=== PATIENT | female | born 1945 | race Caucasian/White ===

== ENCOUNTER 2020-06-18 14:30 | Observation (INO) ==
[2020-06-18] MEDS ORDERED: FUROSEMIDE 40 MG/4 ML VIAL IV STA (14:56)
[2020-06-18 15:29] LABS: Basophils # 0.1 10*3/uL (0.0-0.2); Basophils % 1.1 % (0.0-0.8); Eosinophils # 0.2 10*3/uL (0.0-0.87); Eosinophils % 3.9 % (0.00-10.9); Hematocrit 30.7 VOL% (35.7-47.0); Hemoglobin 9.8 GM/DL (12.0-16.0); Immature Granulocytes % 0.2 %; Immature Granulocytes Absolute 0.01 #; Lymphocytes # 1.6 10*3/uL (1.4-4.0); Lymphocytes % 26.4 % (21.3-54.2); Mean Corpuscular HGB Conc 31.9 GM/DL (32-36); Mean Corpuscular Volume 92.2 FL (87-102); Mean Platelet Volume 11.7 FL (9.6-12.0); Monocytes % 9.7 % (1.7-12.7); Neutrophils % 58.7 % (38.7-73.9); Platelet Count 163 T/CUMM (130-400); Red Blood Count 3.33 MC/CUMM (3.8-5.5); Red Cell Distribution Width 12.5 % (9.3-17.3); White Blood Count 6.1 T/CUMM (4-12)
[2020-06-18 16:01] LABS: Bilirubin,Urine Negative (Negative); Blood, Urine Large mg/dL (Negative); Glucose,Urine (UA) Negative (Negative); Hyaline Casts,Urine 29 /LPF (0-3); Ketones,Urine Negative (Negative); Mucus,Urine Occasional /LPF (Occasional); Nitrite,Urine Negative (Negative); Protein,Urine >=500 MG/DL; RBC,Urine 238 /HPF (0-4); Squamous Epithelial Cell,Urine Occasional /HPF (0-10); Urine Appearance Slightly Hazy (Clear); Urine Color Yellow (Yellow); Urine Specific Gravity 1.012 (1.001-1.035); Urine Urobilinogen < 2.0 EU/DL (0.2-1.0)
[2020-06-18] MEDS ORDERED: ONDANSETRON 4 MG/2 ML VIAL IV STA (16:09)
[2020-06-18 16:17] LABS: Bilirubin,Total 0.6 MG/DL (0.2-1.0); Calcium 8.5 MG/DL (8.5-10.1); Prealbumin 11.4 MG/DL (20-40); Total Protein 5.8 G/DL (5.0-7.5)
[2020-06-18] MEDS ORDERED: GLUCAGON 1 MG VIAL IM PRN (21:11)
[2020-06-18] MEDS ORDERED: DEXTROSE 50% 25 GM/50 ML VIAL IV PRN (21:11)
[2020-06-18] MEDS: cefTRIAXone 500 MG in SYRINGE 1 EACH IV SCH (21:27)
[2020-06-18] MEDS: PROPRANOLOL 40 MG TABLET PO SCH (21:27)
[2020-06-18] MEDS: MONTELUKAST 10 MG TABLET PO SCH (21:28)
[2020-06-18] MEDS: ALBUMIN 25% 25 GM in PREMIX 1 EACH IV SCH (21:28)
[2020-06-19] MEDS: ALBUMIN 25% 25 GM in PREMIX 1 EACH IV SCH ×3 (06:03→22:02)
[2020-06-19 06:51] LABS: Calcium 8.5 MG/DL (8.5-10.1); Potassium 3.8 MMOL/L (3.5-5.1)
[2020-06-19] MEDS: INSULIN REGULAR 100 UNIT/ML SUBCUT SCH ×2 (07:05→16:10)
[2020-06-19] MEDS: GLIMEPIRIDE 2 MG TABLET PO SCH (09:02)
[2020-06-19] MEDS: PROPRANOLOL 40 MG TABLET PO SCH ×2 (09:06→22:01)
[2020-06-19] MEDS: SERTRALINE 50 MG TABLET PO SCH (09:06)
[2020-06-19] MEDS: SIMETHICONE CHEW 80 MG TABLET PO SCH ×3 (09:07→17:21)
[2020-06-19] MEDS: FUROSEMIDE 20 MG/2 ML VIAL IV SCH (09:12)
[2020-06-19] MEDS ORDERED: SPIRONOLACTONE 100 MG TABLET PO SCH (15:00)
[2020-06-19] MEDS: PANTOPRAZOLE 40 MG TABLET PO SCH (17:20)
[2020-06-19] MEDS: ALBUTEROL/IPRATROPIUM 3 ML NEB RESP TX SCH (19:31)
[2020-06-19] MEDS: MONTELUKAST 10 MG TABLET PO SCH (22:01)
[2020-06-19] MEDS: cefTRIAXone 500 MG in SYRINGE 1 EACH IV SCH (22:01)
[2020-06-20] MEDS: ALBUTEROL/IPRATROPIUM 3 ML NEB RESP TX SCH ×4 (01:53→20:04)
[2020-06-20] MEDS: ALBUMIN 25% 25 GM in PREMIX 1 EACH IV SCH ×3 (05:37→20:49)
[2020-06-20 07:10] LABS: Basophils % 0.8 % (0.0-0.8); Eosinophils # 0.2 10*3/uL (0.0-0.87); Eosinophils % 3.8 % (0.00-10.9); Hematocrit 26.1 VOL% (35.7-47.0); Hemoglobin 8.3 GM/DL (12.0-16.0); Immature Granulocytes % 0.3 %; Immature Granulocytes Absolute 0.01 #; Lymphocytes % 25.7 % (21.3-54.2); Mean Corpuscular HGB Conc 31.8 GM/DL (32-36); Mean Corpuscular Volume 93.5 FL (87-102); Mean Platelet Volume 12.5 FL (9.6-12.0); Monocytes % 9.7 % (1.7-12.7); Neutrophils % 59.7 % (38.7-73.9); Platelet Count 84 T/CUMM (130-400); Red Blood Count 2.79 MC/CUMM (3.8-5.5); Red Cell Distribution Width 12.3 % (9.3-17.3); White Blood Count 3.9 T/CUMM (4-12)
[2020-06-20] MEDS: BUDESONIDE 0.25 MG/2 ML NEB RESP TX SCH ×3 (07:32→20:04)
[2020-06-20 07:45] LABS: Calcium 8.6 MG/DL (8.5-10.1); Osmolality,Calculated 289.7 MOS/KG (273-304); Potassium 3.6 MMOL/L (3.5-5.1)
[2020-06-20 07:48] LABS: Albumin 2.9 G/DL (3.4-5.0); Bilirubin,Direct 0.18 MG/DL (0.0-0.20); Bilirubin,Indirect 0.6 MG/DL (0.0-1.0); Bilirubin,Total 0.8 MG/DL (0.2-1.0); Total Protein 5.9 G/DL (5.0-7.5)
[2020-06-20 08:12] LABS: Hypochromasia 1+
[2020-06-20 08:13] LABS: Microcytosis 1+; Platelet Estimate Decreased
[2020-06-20] MEDS: SIMETHICONE CHEW 80 MG TABLET PO SCH ×3 (09:15→16:56)
[2020-06-20] MEDS: PROPRANOLOL 40 MG TABLET PO SCH ×2 (09:15→20:50)
[2020-06-20] MEDS: GLIMEPIRIDE 2 MG TABLET PO SCH (09:15)
[2020-06-20] MEDS: SERTRALINE 50 MG TABLET PO SCH (09:15)
[2020-06-20] MEDS: INSULIN REGULAR 100 UNIT/ML SUBCUT SCH ×2 (09:54→16:56)
[2020-06-20] MEDS: methylPREDNISolone SOD SUC 40 MG/1 ML VIAL IV SCH ×2 (09:55→20:49)
[2020-06-20] MEDS: FUROSEMIDE 20 MG/2 ML VIAL IV SCH (09:55)
[2020-06-20] MEDS: PANTOPRAZOLE 40 MG TABLET PO SCH (09:55)
[2020-06-20] MEDS ORDERED: SPIRONOLACTONE 25 MG TABLET PO ONE (16:40)
[2020-06-20] MEDS: cefTRIAXone 500 MG in SYRINGE 1 EACH IV SCH (20:49)
[2020-06-20] MEDS: MONTELUKAST 10 MG TABLET PO SCH (20:50)
[2020-06-21] MEDS: ALBUMIN 25% 25 GM in PREMIX 1 EACH IV SCH ×4 (00:16→15:05)
[2020-06-21] MEDS: ALBUTEROL/IPRATROPIUM 3 ML NEB RESP TX SCH ×4 (00:28→19:43)
[2020-06-21 04:51] LABS: Calcium 8.7 MG/DL (8.5-10.1); Osmolality,Calculated 285.4 MOS/KG (273-304); Potassium 3.9 MMOL/L (3.5-5.1)
[2020-06-21] MEDS: BUDESONIDE 0.25 MG/2 ML NEB RESP TX SCH ×2 (07:25→19:43)
[2020-06-21] MEDS: INSULIN REGULAR 100 UNIT/ML SUBCUT SCH ×2 (07:49→15:57)
[2020-06-21] MEDS: GLIMEPIRIDE 2 MG TABLET PO SCH (09:43)
[2020-06-21] MEDS: SIMETHICONE CHEW 80 MG TABLET PO SCH ×3 (09:43→17:25)
[2020-06-21] MEDS: PANTOPRAZOLE 40 MG TABLET PO SCH (09:44)
[2020-06-21] MEDS: SERTRALINE 50 MG TABLET PO SCH (09:44)
[2020-06-21] MEDS: SPIRONOLACTONE 25 MG TABLET PO SCH (09:44)
[2020-06-21] MEDS: PROPRANOLOL 40 MG TABLET PO SCH ×2 (09:44→21:15)
[2020-06-21] MEDS: methylPREDNISolone SOD SUC 40 MG/1 ML VIAL IV SCH ×2 (09:47→21:15)
[2020-06-21] MEDS: FUROSEMIDE 20 MG/2 ML VIAL IV SCH (09:48)
[2020-06-21] MEDS ORDERED: POLYETHYLENE GLYCOL POWDER 17 GM PACK PO PRN (19:41)
[2020-06-21] MEDS: cefTRIAXone 500 MG in SYRINGE 1 EACH IV SCH (21:15)
[2020-06-21] MEDS: MONTELUKAST 10 MG TABLET PO SCH (21:15)
[2020-06-21] MEDS: ONDANSETRON ODT 4 MG TABLET PO PRN (21:19)
[2020-06-22] MEDS: ALBUTEROL/IPRATROPIUM 3 ML NEB RESP TX SCH ×4 (00:05→19:32)
[2020-06-22] MEDS: ALBUMIN 25% 25 GM in PREMIX 1 EACH IV SCH ×2 (00:10→06:04)
[2020-06-22 05:28] LABS: Basophils % 0.2 % (0.0-0.8); Hematocrit 25.2 VOL% (35.7-47.0); Immature Granulocytes % 0.6 %; Immature Granulocytes Absolute 0.03 #; Lymphocytes # 0.5 10*3/uL (1.4-4.0); Lymphocytes % 9.8 % (21.3-54.2); Mean Corpuscular HGB Conc 31.7 GM/DL (32-36); Mean Corpuscular Volume 92.3 FL (87-102); Mean Platelet Volume 12.8 FL (9.6-12.0); Monocytes % 6.7 % (1.7-12.7); Neutrophils % 82.7 % (38.7-73.9); Platelet Count 83 T/CUMM (130-400); Red Blood Count 2.73 MC/CUMM (3.8-5.5); Red Cell Distribution Width 12.4 % (9.3-17.3); White Blood Count 4.8 T/CUMM (4-12)
[2020-06-22 05:46] LABS: Albumin 3.6 G/DL (3.4-5.0); Calcium 8.6 MG/DL (8.5-10.1); Osmolality,Calculated 289.3 MOS/KG (273-304); Potassium 3.9 MMOL/L (3.5-5.1); Total Protein 5.8 G/DL (5.0-7.5)
[2020-06-22] MEDS: BUDESONIDE 0.25 MG/2 ML NEB RESP TX SCH ×2 (07:00→19:32)
[2020-06-22 07:23] LABS: Macrocytosis Slight; Platelet Estimate Decreased
[2020-06-22 07:24] LABS: Anisocytosis Slight
[2020-06-22] MEDS: INSULIN REGULAR 100 UNIT/ML SUBCUT SCH ×2 (07:29→17:12)
[2020-06-22] MEDS: PROPRANOLOL 40 MG TABLET PO SCH ×2 (08:25→21:23)
[2020-06-22] MEDS: PANTOPRAZOLE 40 MG TABLET PO SCH (08:26)
[2020-06-22] MEDS: GLIMEPIRIDE 2 MG TABLET PO SCH (08:26)
[2020-06-22] MEDS: SPIRONOLACTONE 25 MG TABLET PO SCH (08:26)
[2020-06-22] MEDS: SIMETHICONE CHEW 80 MG TABLET PO SCH ×3 (08:26→17:12)
[2020-06-22] MEDS: methylPREDNISolone SOD SUC 40 MG/1 ML VIAL IV SCH ×2 (08:29→21:23)
[2020-06-22] MEDS: FUROSEMIDE 20 MG/2 ML VIAL IV SCH (08:31)
[2020-06-22] MEDS: SERTRALINE 50 MG TABLET PO SCH (11:55)
[2020-06-22] MEDS ORDERED: FUROSEMIDE 20 MG/2 ML VIAL IV ONE ×2 (12:04→18:25)
[2020-06-22] MEDS ORDERED: SODIUM CHLORIDE 0.9% 1,000 ML IV PRN (12:10)
[2020-06-22] MEDS ORDERED: ACETAMINOPHEN 325 MG TABLET PO ONE (13:00)
[2020-06-22] MEDS: MONTELUKAST 10 MG TABLET PO SCH (21:23)
[2020-06-22] MEDS: cefTRIAXone 500 MG in SYRINGE 1 EACH IV SCH (21:24)
[2020-06-23] MEDS: ALBUTEROL/IPRATROPIUM 3 ML NEB RESP TX SCH ×4 (01:05→19:44)
[2020-06-23] MEDS: SPIRONOLACTONE 25 MG TABLET PO SCH (09:26)
[2020-06-23] MEDS: SERTRALINE 50 MG TABLET PO SCH (09:26)
[2020-06-23] MEDS: PROPRANOLOL 40 MG TABLET PO SCH ×2 (09:26→21:39)
[2020-06-23] MEDS: PANTOPRAZOLE 40 MG TABLET PO SCH (09:26)
[2020-06-23] MEDS: CHOLECALCIFEROL 1,000 UNIT TABLET PO SCH (09:26)
[2020-06-23] MEDS: SIMETHICONE CHEW 80 MG TABLET PO SCH ×3 (09:27→17:00)
[2020-06-23] MEDS: methylPREDNISolone SOD SUC 40 MG/1 ML VIAL IV SCH ×2 (09:27→21:35)
[2020-06-23] MEDS: GLIMEPIRIDE 2 MG TABLET PO SCH (09:27)
[2020-06-23] MEDS: FUROSEMIDE 20 MG/2 ML VIAL IV SCH (09:35)
[2020-06-23] MEDS: BUDESONIDE 0.25 MG/2 ML NEB RESP TX SCH ×2 (09:58→19:44)
[2020-06-23 11:27] LABS: Basophils % 0.2 % (0.0-0.8); Hematocrit 29.8 VOL% (35.7-47.0); Hemoglobin 9.4 GM/DL (12.0-16.0); Immature Granulocytes % 0.9 %; Immature Granulocytes Absolute 0.05 #; Lymphocytes # 0.4 10*3/uL (1.4-4.0); Lymphocytes % 6.2 % (21.3-54.2); Mean Corpuscular HGB Conc 31.5 GM/DL (32-36); Mean Corpuscular Volume 93.7 FL (87-102); Mean Platelet Volume 12.9 FL (9.6-12.0); Monocytes % 5.5 % (1.7-12.7); Neutrophils % 87.2 % (38.7-73.9); Platelet Count 99 T/CUMM (130-400); Red Blood Count 3.18 MC/CUMM (3.8-5.5); Red Cell Distribution Width 12.7 % (9.3-17.3); White Blood Count 5.7 T/CUMM (4-12)
[2020-06-23 11:43] LABS: Platelet Estimate Decreased
[2020-06-23 11:44] LABS: Hypochromasia 1+; Microcytosis 1+
[2020-06-23] MEDS: INSULIN REGULAR 100 UNIT/ML SUBCUT SCH ×2 (11:54→18:02)
[2020-06-23] MEDS ORDERED: FUROSEMIDE 40 MG/4 ML VIAL IV SCH (15:02)
[2020-06-23] MEDS ORDERED: SPIRONOLACTONE 50 MG TABLET PO ONE (15:04)
[2020-06-23] MEDS: MYLANTA/LIDO VISC/NYST 180 ML BOTTLE SWISH/SPIT SCH ×2 (17:00→22:47)
[2020-06-23 19:05] LABS: Albumin 3.4 G/DL (3.4-5.0); Bilirubin,Total 0.8 MG/DL (0.2-1.0); Calcium 8.8 MG/DL (8.5-10.1); Osmolality,Calculated 288.7 MOS/KG (273-304); Potassium 3.7 MMOL/L (3.5-5.1); Total Protein 6.5 G/DL (5.0-7.5)
[2020-06-23] MEDS: FUROSEMIDE 40 MG/4 ML VIAL IV SCH (21:35)
[2020-06-23] MEDS: cefTRIAXone 500 MG in SYRINGE 1 EACH IV SCH (21:36)
[2020-06-23] MEDS: MONTELUKAST 10 MG TABLET PO SCH (21:38)
[2020-06-24] MEDS: ONDANSETRON ODT 4 MG TABLET PO PRN (02:43)
[2020-06-24 06:26] LABS: Hematocrit 28.3 VOL% (35.7-47.0); Immature Granulocytes % 0.6 %; Immature Granulocytes Absolute 0.02 #; Lymphocytes # 0.4 10*3/uL (1.4-4.0); Lymphocytes % 9.7 % (21.3-54.2); Mean Corpuscular HGB Conc 31.8 GM/DL (32-36); Mean Corpuscular Volume 93.1 FL (87-102); Mean Platelet Volume 13.2 FL (9.6-12.0); Monocytes % 5.8 % (1.7-12.7); Neutrophils % 83.9 % (38.7-73.9); Platelet Count 90 T/CUMM (130-400); Red Blood Count 3.04 MC/CUMM (3.8-5.5); Red Cell Distribution Width 12.6 % (9.3-17.3); White Blood Count 3.6 T/CUMM (4-12)
[2020-06-24 06:46] LABS: Hypochromasia 1+; Microcytosis 1+; Platelet Estimate Decreased
[2020-06-24 06:48] LABS: Albumin 3.2 G/DL (3.4-5.0); Calcium 8.5 MG/DL (8.5-10.1); Osmolality,Calculated 296.1 MOS/KG (273-304); Potassium 3.9 MMOL/L (3.5-5.1)
[2020-06-24] MEDS: MYLANTA/LIDO VISC/NYST 180 ML BOTTLE SWISH/SPIT SCH ×3 (07:30→17:30)
[2020-06-24] MEDS: ALBUTEROL/IPRATROPIUM 3 ML NEB RESP TX SCH ×2 (07:35→14:50)
[2020-06-24] MEDS: BUDESONIDE 0.25 MG/2 ML NEB RESP TX SCH (07:35)
[2020-06-24] MEDS: PANTOPRAZOLE 40 MG TABLET PO SCH (08:59)
[2020-06-24] MEDS ORDERED: POLYETHYLENE GLYCOL POWDER 17 GM PACK PO SCH (09:00)
[2020-06-24] MEDS: SIMETHICONE CHEW 80 MG TABLET PO SCH ×3 (09:00→17:30)
[2020-06-24] MEDS: GLIMEPIRIDE 2 MG TABLET PO SCH (09:00)
[2020-06-24] MEDS ORDERED: SPIRONOLACTONE 100 MG TABLET PO SCH (09:00)
[2020-06-24] MEDS: CHOLECALCIFEROL 1,000 UNIT TABLET PO SCH (09:01)
[2020-06-24] MEDS: PROPRANOLOL 40 MG TABLET PO SCH (09:01)
[2020-06-24] MEDS: SERTRALINE 50 MG TABLET PO SCH (09:02)
[2020-06-24] MEDS: INSULIN REGULAR 100 UNIT/ML SUBCUT SCH (09:02)
[2020-06-24] MEDS: FUROSEMIDE 40 MG/4 ML VIAL IV SCH (09:03)
[2020-06-24] MEDS: methylPREDNISolone SOD SUC 40 MG/1 ML VIAL IV SCH (09:07)
[2020-06-24 12:16] VITALS: BP 170/83
[2020-06-24] MEDS ORDERED: IPRATROPIUM 500 MCG/2.5 ML NEB RESP TX SCH (19:00)
[2020-06-24] MEDS ORDERED: LEVALBUTEROL 1.25 MG/3 ML NEB RESP TX SCH (19:00)
== END 2020-06-24 17:40 ==
LOC: N.EDINP 14:30 → N.ED 14:30 → N.4E 19:22
PROVIDERS: ADMIT Internal Medicine; ATTEND Internal Medicine

== ENCOUNTER 2020-08-14 14:19 | Inpatient (IN) ==
[2020-08-14] MEDS ORDERED: ACETAMINOPHEN 325 MG TABLET PO PRN (15:17)
[2020-08-14] MEDS ORDERED: ONDANSETRON 4 MG/2 ML VIAL IV PRN (15:17)
[2020-08-14] MEDS ORDERED: MAGNESIUM HYDROXIDE SUSP 30 ML UDCUP PO PRN (15:20)
[2020-08-14] MEDS ORDERED: LACTULOSE 20 GM/30 ML UDCUP PO PRN (15:20)
[2020-08-14] MEDS ORDERED: TUBERCULIN SKIN TEST 0.1 ML SYRINGE INTRADERM ONE (17:30)
[2020-08-14 17:35] LABS: Basophils # 0.1 10*3/uL (0.0-0.2); Basophils % 0.8 % (0.0-0.8); Eosinophils # 0.7 10*3/uL (0.0-0.87); Eosinophils % 11.6 % (0.00-10.9); Hematocrit 27.5 VOL% (35.7-47.0); Hemoglobin 8.3 GM/DL (12.0-16.0); Immature Granulocytes % 0.3 %; Immature Granulocytes Absolute 0.02 #; Lymphocytes # 0.7 10*3/uL (1.4-4.0); Lymphocytes % 11.8 % (21.3-54.2); Mean Corpuscular HGB Conc 30.2 GM/DL (32-36); Mean Corpuscular Volume 87.6 FL (87-102); Mean Platelet Volume 11.9 FL (9.6-12.0); Monocytes % 10.6 % (1.7-12.7); Neutrophils % 64.9 % (38.7-73.9); Platelet Count 171 T/CUMM (130-400); Red Blood Count 3.14 MC/CUMM (3.8-5.5); Red Cell Distribution Width 15.3 % (9.3-17.3)
[2020-08-14 17:54] LABS: Albumin 2.6 G/DL (3.4-5.0); Bilirubin,Total 0.7 MG/DL (0.2-1.0); Calcium 8.9 MG/DL (8.5-10.1); Osmolality,Calculated 280.5 MOS/KG (273-304); Total Protein 6.6 G/DL (6.4-8.2)
[2020-08-14] MEDS: FUROSEMIDE 80 MG TABLET PO SCH (19:04)
[2020-08-14] MEDS: SIMETHICONE CHEW 80 MG TABLET PO SCH (19:04)
[2020-08-14] MEDS: ALBUTEROL/IPRATROPIUM 3 ML NEB RESP TX SCH (19:05)
[2020-08-14 19:28] LABS: Band Neutrophils 2 % (0-10); Eosinophils 12 % (0-10); Lymphocytes 12 % (20-55); Platelet Estimate Normal; Segmented Neutrophils 61 % (50-85); Total Cells Counted 100
[2020-08-14] MEDS: DOCUSATE SODIUM 100 MG CAPSULE PO SCH (22:10)
[2020-08-14] MEDS: traMADol 50 MG TABLET PO PRN (22:11)
[2020-08-14] MEDS: NYSTATIN 500,000 UNIT/5 ML UDCUP SWISH/SWAL SCH (22:12)
[2020-08-14] MEDS: methylPREDNISolone SOD SUC 40 MG/1 ML VIAL IV SCH (22:12)
[2020-08-14] MEDS: hydrOXYzine HCL 25 MG TABLET PO SCH (22:12)
[2020-08-14] MEDS: CLINDAMYCIN INJ 600 MG/50 ML PREMIX IV SCH (22:13)
[2020-08-14] MEDS: INSULIN REGULAR 100 UNIT/ML SUBCUT SCH (23:46)
[2020-08-15] MEDS: ALBUMIN 25% 25 GM/100 ML VIAL IV SCH ×4 (00:39→21:54)
[2020-08-15] MEDS: ALBUTEROL/IPRATROPIUM 3 ML NEB RESP TX SCH ×4 (01:00→19:58)
[2020-08-15] MEDS: NYSTATIN OINT 15 GM TUBE TOP SCH ×3 (05:11→21:52)
[2020-08-15] MEDS: CLINDAMYCIN INJ 600 MG/50 ML PREMIX IV SCH ×3 (05:39→21:00)
[2020-08-15] MEDS: methylPREDNISolone SOD SUC 40 MG/1 ML VIAL IV SCH ×3 (06:37→21:52)
[2020-08-15 06:44] LABS: Albumin 2.9 G/DL (3.4-5.0); Bilirubin,Total 1.1 MG/DL (0.2-1.0); Osmolality,Calculated 280.7 MOS/KG (273-304); Potassium 4.5 MMOL/L (3.5-5.1)
[2020-08-15 06:46] LABS: Basophils % 0.5 % (0.0-0.8); Eosinophils # 0.1 10*3/uL (0.0-0.87); Eosinophils % 1.9 % (0.00-10.9); Hematocrit 28.1 VOL% (35.7-47.0); Hemoglobin 8.5 GM/DL (12.0-16.0); Immature Granulocytes % 0.5 %; Immature Granulocytes Absolute 0.02 #; Lymphocytes # 0.3 10*3/uL (1.4-4.0); Lymphocytes % 7.5 % (21.3-54.2); Mean Corpuscular HGB Conc 30.2 GM/DL (32-36); Mean Corpuscular Volume 88.6 FL (87-102); Mean Platelet Volume 12.2 FL (9.6-12.0); Monocytes % 2.6 % (1.7-12.7); Platelet Count 153 T/CUMM (130-400); Red Blood Count 3.17 MC/CUMM (3.8-5.5); Red Cell Distribution Width 15.1 % (9.3-17.3); White Blood Count 4.2 T/CUMM (4-12)
[2020-08-15] MEDS ORDERED: FUROSEMIDE 40 MG/4 ML VIAL IV ONE (07:00)
[2020-08-15] MEDS: PANTOPRAZOLE 40 MG TABLET PO SCH ×2 (07:20→08:59)
[2020-08-15] MEDS: SIMETHICONE CHEW 80 MG TABLET PO SCH ×3 (08:12→18:02)
[2020-08-15] MEDS: FUROSEMIDE 80 MG TABLET PO SCH ×2 (08:12→16:09)
[2020-08-15] MEDS: NYSTATIN 500,000 UNIT/5 ML UDCUP SWISH/SWAL SCH ×4 (08:12→20:17)
[2020-08-15] MEDS: SERTRALINE 50 MG TABLET PO SCH (08:12)
[2020-08-15] MEDS: DOCUSATE SODIUM 100 MG CAPSULE PO SCH ×2 (08:13→20:17)
[2020-08-15] MEDS: SPIRONOLACTONE 50 MG TABLET PO SCH (08:13)
[2020-08-15] MEDS: hydrOXYzine HCL 25 MG TABLET PO SCH ×3 (08:13→20:17)
[2020-08-15] MEDS: INSULIN REGULAR 100 UNIT/ML SUBCUT SCH ×4 (09:14→21:47)
[2020-08-15] MEDS: PROPRANOLOL 40 MG TABLET PO SCH ×2 (11:47→20:17)
[2020-08-15 12:03] LABS: Bacteria,Urine Occasional /HPF (Few); Bilirubin,Urine Negative (Negative); Blood, Urine Large mg/dL (Negative); Glucose,Urine (UA) Negative (Negative); Hyaline Casts,Urine 49 /LPF (0-3); Ketones,Urine Negative (Negative); Mucus,Urine Occasional /LPF (Occasional); Nitrite,Urine Negative (Negative); Protein,Urine 100 MG/DL; RBC,Urine 114 /HPF (0-4); Squamous Epithelial Cell,Urine Occasional /HPF (0-10); Urine Appearance Slightly Hazy (Clear); Urine Color Yellow (Yellow); Urine Specific Gravity 1.012 (1.001-1.035); Urine Urobilinogen < 2.0 EU/DL (0.2-1.0)
[2020-08-15] MEDS: traMADol 50 MG TABLET PO PRN (20:22)
[2020-08-16] MEDS: ALBUTEROL/IPRATROPIUM 3 ML NEB RESP TX SCH ×4 (00:03→20:12)
[2020-08-16] MEDS: CLINDAMYCIN INJ 600 MG/50 ML PREMIX IV SCH ×3 (05:22→23:26)
[2020-08-16] MEDS: methylPREDNISolone SOD SUC 40 MG/1 ML VIAL IV SCH ×3 (06:05→23:18)
[2020-08-16] MEDS: ALBUMIN 25% 25 GM/100 ML VIAL IV SCH ×2 (06:05→14:37)
[2020-08-16 06:12] LABS: Basophils % 0.1 % (0.0-0.8); Eosinophils % 0.1 % (0.00-10.9); Hematocrit 26.8 VOL% (35.7-47.0); Hemoglobin 8.2 GM/DL (12.0-16.0); Immature Granulocytes % 0.6 %; Immature Granulocytes Absolute 0.04 #; Lymphocytes # 0.6 10*3/uL (1.4-4.0); Lymphocytes % 8.1 % (21.3-54.2); Mean Corpuscular HGB Conc 30.6 GM/DL (32-36); Mean Corpuscular Volume 87.6 FL (87-102); Mean Platelet Volume 12.2 FL (9.6-12.0); Monocytes % 4.1 % (1.7-12.7); Platelet Count 205 T/CUMM (130-400); Red Blood Count 3.06 MC/CUMM (3.8-5.5); Red Cell Distribution Width 15.4 % (9.3-17.3); White Blood Count 7.3 T/CUMM (4-12)
[2020-08-16 06:24] LABS: Albumin 3.7 G/DL (3.4-5.0); Bilirubin,Total 1.1 MG/DL (0.2-1.0); Calcium 8.9 MG/DL (8.5-10.1); Osmolality,Calculated 282.1 MOS/KG (273-304); Potassium 4.8 MMOL/L (3.5-5.1); Total Protein 7.5 G/DL (6.4-8.2)
[2020-08-16] MEDS: SIMETHICONE CHEW 80 MG TABLET PO SCH ×3 (08:02→17:01)
[2020-08-16] MEDS: INSULIN REGULAR 100 UNIT/ML SUBCUT SCH ×4 (08:46→23:17)
[2020-08-16] MEDS: DOCUSATE SODIUM 100 MG CAPSULE PO SCH ×2 (08:47→23:04)
[2020-08-16] MEDS: FUROSEMIDE 80 MG TABLET PO SCH ×2 (08:47→16:57)
[2020-08-16] MEDS: NYSTATIN 500,000 UNIT/5 ML UDCUP SWISH/SWAL SCH ×4 (08:47→23:04)
[2020-08-16] MEDS: SPIRONOLACTONE 50 MG TABLET PO SCH (08:47)
[2020-08-16] MEDS: hydrOXYzine HCL 25 MG TABLET PO SCH ×3 (08:47→23:04)
[2020-08-16] MEDS: SERTRALINE 50 MG TABLET PO SCH (08:47)
[2020-08-16] MEDS: PANTOPRAZOLE 40 MG TABLET PO SCH (08:47)
[2020-08-16] MEDS: PROPRANOLOL 40 MG TABLET PO SCH ×2 (08:51→23:04)
[2020-08-16] MEDS: NYSTATIN OINT 15 GM TUBE TOP SCH ×2 (09:31→23:05)
[2020-08-17] MEDS: ALBUMIN 25% 25 GM/100 ML VIAL IV SCH ×4 (00:58→23:50)
[2020-08-17] MEDS: ALBUTEROL/IPRATROPIUM 3 ML NEB RESP TX SCH ×4 (01:00→19:31)
[2020-08-17] MEDS: CLINDAMYCIN INJ 600 MG/50 ML PREMIX IV SCH ×3 (06:23→23:20)
[2020-08-17] MEDS: methylPREDNISolone SOD SUC 40 MG/1 ML VIAL IV SCH ×3 (06:24→23:20)
[2020-08-17 07:05] LABS: Hematocrit 25.3 VOL% (35.7-47.0); Immature Granulocytes % 0.5 %; Immature Granulocytes Absolute 0.03 #; Lymphocytes # 0.5 10*3/uL (1.4-4.0); Lymphocytes % 8.1 % (21.3-54.2); Mean Corpuscular HGB Conc 31.6 GM/DL (32-36); Mean Corpuscular Volume 87.2 FL (87-102); Mean Platelet Volume 12.5 FL (9.6-12.0); Monocytes % 6.3 % (1.7-12.7); Neutrophils % 85.1 % (38.7-73.9); Platelet Count 171 T/CUMM (130-400); Red Cell Distribution Width 15.2 % (9.3-17.3); White Blood Count 5.6 T/CUMM (4-12)
[2020-08-17] MEDS: INSULIN REGULAR 100 UNIT/ML SUBCUT SCH ×4 (07:48→22:15)
[2020-08-17] MEDS: PROPRANOLOL 40 MG TABLET PO SCH ×2 (09:05→20:46)
[2020-08-17] MEDS: SPIRONOLACTONE 50 MG TABLET PO SCH (09:05)
[2020-08-17] MEDS: hydrOXYzine HCL 25 MG TABLET PO SCH ×3 (09:05→20:45)
[2020-08-17] MEDS: SERTRALINE 50 MG TABLET PO SCH (09:05)
[2020-08-17] MEDS: DOCUSATE SODIUM 100 MG CAPSULE PO SCH ×2 (09:05→20:45)
[2020-08-17] MEDS: PANTOPRAZOLE 40 MG TABLET PO SCH (09:06)
[2020-08-17] MEDS: NYSTATIN 500,000 UNIT/5 ML UDCUP SWISH/SWAL SCH ×5 (09:06→20:46)
[2020-08-17] MEDS: SIMETHICONE CHEW 80 MG TABLET PO SCH ×3 (09:06→17:51)
[2020-08-17] MEDS: FUROSEMIDE 80 MG TABLET PO SCH ×2 (09:06→17:48)
[2020-08-17] MEDS: NYSTATIN OINT 15 GM TUBE TOP SCH ×2 (09:07→22:15)
[2020-08-17] MEDS: traMADol 50 MG TABLET PO PRN (23:20)
[2020-08-18] MEDS: methylPREDNISolone SOD SUC 40 MG/1 ML VIAL IV SCH ×2 (05:00→13:55)
[2020-08-18] MEDS: CLINDAMYCIN INJ 600 MG/50 ML PREMIX IV SCH ×2 (05:00→13:55)
[2020-08-18] MEDS: ALBUMIN 25% 25 GM/100 ML VIAL IV SCH ×2 (05:40→13:55)
[2020-08-18 05:50] LABS: Hematocrit 25.3 VOL% (35.7-47.0); Hemoglobin 7.7 GM/DL (12.0-16.0); Immature Granulocytes % 0.8 %; Immature Granulocytes Absolute 0.03 #; Lymphocytes # 0.3 10*3/uL (1.4-4.0); Lymphocytes % 9.2 % (21.3-54.2); Mean Corpuscular HGB Conc 30.4 GM/DL (32-36); Mean Corpuscular Volume 86.9 FL (87-102); Mean Platelet Volume 12.5 FL (9.6-12.0); Monocytes % 5.1 % (1.7-12.7); Neutrophils % 84.9 % (38.7-73.9); Platelet Count 169 T/CUMM (130-400); Red Blood Count 2.91 MC/CUMM (3.8-5.5); Red Cell Distribution Width 15.2 % (9.3-17.3); White Blood Count 3.7 T/CUMM (4-12)
[2020-08-18 06:31] LABS: Calcium 8.3 MG/DL (8.5-10.1); Potassium 4.8 MMOL/L (3.5-5.1)
[2020-08-18] MEDS: ALBUTEROL/IPRATROPIUM 3 ML NEB RESP TX SCH ×2 (06:54→07:45)
[2020-08-18] MEDS ORDERED: LIDOCAINE 2% TOP JELLY 20 ML VIAL INTRAURETH ONE (07:48)
[2020-08-18] MEDS: INSULIN REGULAR 100 UNIT/ML SUBCUT SCH ×2 (08:09→11:08)
[2020-08-18] MEDS: DOCUSATE SODIUM 100 MG CAPSULE PO SCH (09:31)
[2020-08-18] MEDS: FUROSEMIDE 80 MG TABLET PO SCH (09:31)
[2020-08-18] MEDS: NYSTATIN 500,000 UNIT/5 ML UDCUP SWISH/SWAL SCH ×2 (09:31→13:45)
[2020-08-18] MEDS: SERTRALINE 50 MG TABLET PO SCH (09:31)
[2020-08-18] MEDS: SIMETHICONE CHEW 80 MG TABLET PO SCH ×2 (09:31→13:45)
[2020-08-18] MEDS: PROPRANOLOL 40 MG TABLET PO SCH (09:31)
[2020-08-18] MEDS: hydrOXYzine HCL 25 MG TABLET PO SCH ×2 (09:31→16:21)
[2020-08-18] MEDS: PANTOPRAZOLE 40 MG TABLET PO SCH (09:31)
[2020-08-18] MEDS: NYSTATIN OINT 15 GM TUBE TOP SCH (09:32)
[2020-08-18] MEDS: SPIRONOLACTONE 50 MG TABLET PO SCH (09:39)
[2020-08-18] MEDS ORDERED: TUBERCULIN SKIN TEST 0.1 ML SYRINGE INTRADERM ONE (09:50)
[2020-08-18 16:21] VITALS: BP 128/72
[2020-08-18] MEDS ORDERED: FUROSEMIDE 40 MG TABLET PO SCH (17:00)
[2020-08-18] MEDS ORDERED: TRIAMCINOLONE 0.1% CREAM 15 GM TUBE TOP SCH (21:00)
== END 2020-08-18 16:18 | DRG 433 ==
LOC: N.TELEN 15:55
PROVIDERS: ADMIT Internal Medicine; ATTEND Internal Medicine

== ENCOUNTER 2020-08-22 11:08 | Inpatient (IN) ==
[2020-08-22 11:46] LABS: Basophils % 0.1 % (0.0-0.8); Eosinophils # 0.1 10*3/uL (0.0-0.87); Eosinophils % 1.2 % (0.00-10.9); Hematocrit 26.1 VOL% (35.7-47.0); Hemoglobin 8.1 GM/DL (12.0-16.0); Immature Granulocytes % 0.4 %; Immature Granulocytes Absolute 0.04 #; Lymphocytes # 0.6 10*3/uL (1.4-4.0); Mean Corpuscular Volume 84.5 FL (87-102); Mean Platelet Volume 12.3 FL (9.6-12.0); Monocytes % 7.8 % (1.7-12.7); Neutrophils % 83.5 % (38.7-73.9); Platelet Count 178 T/CUMM (130-400); Red Blood Count 3.09 MC/CUMM (3.8-5.5); Red Cell Distribution Width 15.7 % (9.3-17.3); White Blood Count 9.1 T/CUMM (4-12)
[2020-08-22 12:10] LABS: Albumin 4.4 G/DL (3.4-5.0); Bilirubin,Total 1.2 MG/DL (0.2-1.0); Calcium 8.9 MG/DL (8.5-10.1); Osmolality,Calculated 312.5 MOS/KG (273-304); Potassium 5.5 MMOL/L (3.5-5.1); Total Protein 7.3 G/DL (6.4-8.2)
[2020-08-22 12:50] LABS: Sedimentation Rate-Westergren 18 MM/HR (0-30)
[2020-08-22 13:13] LABS: Bilirubin,Urine Negative (Negative); Blood, Urine Moderate mg/dL (Negative); Glucose,Urine (UA) Negative (Negative); Hyaline Casts,Urine 15 /LPF (0-3); Ketones,Urine Negative (Negative); Mucus,Urine Occasional /LPF (Occasional); Nitrite,Urine Negative (Negative); Protein,Urine 100 MG/DL; RBC,Urine 32 /HPF (0-4); Squamous Epithelial Cell,Urine Occasional /HPF (0-10); Urine Appearance CLOUDY (Clear); Urine Color Amber (Yellow); Urine Specific Gravity 1.013 (1.001-1.035); Urine Urobilinogen < 2.0 EU/DL (0.2-1.0)
[2020-08-22] MEDS ORDERED: cefTRIAXone 1,000 MG in SODIUM CHLORIDE 0.9% 100 ML IV STA (14:47)
[2020-08-22] MEDS ORDERED: LACTULOSE 20 GM/30 ML UDCUP PO PRN (14:55)
[2020-08-22] MEDS ORDERED: MAGNESIUM HYDROXIDE SUSP 30 ML UDCUP PO PRN (14:55)
[2020-08-22] MEDS: SODIUM CHLORIDE 0.9% 1,000 ML IV SCH (15:46)
[2020-08-22] MEDS: hydrOXYzine HCL 25 MG TABLET PO SCH ×2 (16:49→21:34)
[2020-08-22] MEDS: cefTRIAXone 1,000 MG in SODIUM CHLORIDE 0.9% 100 ML IV SCH (16:49)
[2020-08-22] MEDS: ENOXAPARIN 30 MG/0.3 ML SYRINGE SUBCUT SCH (18:54)
[2020-08-22] MEDS: ALBUTEROL/IPRATROPIUM 3 ML NEB RESP TX SCH (21:00)
[2020-08-22] MEDS: PROPRANOLOL 40 MG TABLET PO SCH (21:34)
[2020-08-22] MEDS: FERROUS SULFATE 325 MG TABLET PO SCH (21:34)
[2020-08-22] MEDS: DOCUSATE SODIUM 100 MG CAPSULE PO SCH (21:34)
[2020-08-22] MEDS: ACETAMINOPHEN 325 MG TABLET PO PRN (21:35)
[2020-08-22] MEDS: NYSTATIN 500,000 UNIT/5 ML UDCUP SWISH/SWAL SCH (21:35)
[2020-08-22] MEDS: NYSTATIN OINT 15 GM TUBE TOP SCH (21:35)
[2020-08-22] MEDS: TRIAMCINOLONE 0.1% CREAM 15 GM TUBE TOP SCH (21:35)
[2020-08-22] MEDS: [UNRECOGNIZED DRUG - OTHER] PO SCH (21:37)
[2020-08-22] MEDS ORDERED: SODIUM CHLORIDE 0.9% 1,000 ML IV PRN (22:32)
[2020-08-23] MEDS: ALBUTEROL/IPRATROPIUM 3 ML NEB RESP TX SCH ×3 (00:50→14:46)
[2020-08-23] MEDS ORDERED: FUROSEMIDE 20 MG/2 ML VIAL IV ONE (02:04)
[2020-08-23 07:13] LABS: Calcium 8.7 MG/DL (8.5-10.1); Osmolality,Calculated 314.4 MOS/KG (273-304); Potassium 5.5 MMOL/L (3.5-5.1)
[2020-08-23] MEDS: PANTOPRAZOLE 40 MG TABLET PO SCH (08:49)
[2020-08-23] MEDS: PROPRANOLOL 40 MG TABLET PO SCH ×2 (08:49→22:45)
[2020-08-23] MEDS: SERTRALINE 50 MG TABLET PO SCH (08:50)
[2020-08-23] MEDS: FERROUS SULFATE 325 MG TABLET PO SCH ×2 (08:50→22:45)
[2020-08-23] MEDS: NYSTATIN 500,000 UNIT/5 ML UDCUP SWISH/SWAL SCH ×4 (08:50→22:45)
[2020-08-23] MEDS: SODIUM CHLORIDE 0.9% 1,000 ML IV SCH (08:50)
[2020-08-23] MEDS: DOCUSATE SODIUM 100 MG CAPSULE PO SCH ×2 (08:50→22:45)
[2020-08-23] MEDS: hydrOXYzine HCL 25 MG TABLET PO SCH ×3 (08:50→22:46)
[2020-08-23] MEDS: [UNRECOGNIZED DRUG - OTHER] PO SCH ×2 (08:51→22:46)
[2020-08-23] MEDS: NYSTATIN OINT 15 GM TUBE TOP SCH ×2 (09:21→22:47)
[2020-08-23] MEDS ORDERED: SODIUM POLYSTYRENE SULFATE 15 GM/60 ML BOTTLE PO ONE (10:48)
[2020-08-23] MEDS: TRIAMCINOLONE 0.1% CREAM 15 GM TUBE TOP SCH ×2 (12:50→22:46)
[2020-08-23] MEDS: SODIUM BICARB INJ 50 MEQ in SODIUM CHLORIDE 0.45% 1,000 ML IV SCH ×2 (12:50→23:02)
[2020-08-23] MEDS: cefTRIAXone 1,000 MG in SODIUM CHLORIDE 0.9% 100 ML IV SCH (14:41)
[2020-08-23 14:57] LABS: Hepatitis B Core IgM Quant 0.12 Index; Hepatitis B Surface Ag Quant < 0.10 Index; Hepatitis B Surface Ag Result Non-Reactive (NonReactive); Hepatitis C Virus Ab Quant 0.13 Index; Hepatitis C Virus Ab Result Non-Reactive (NonReactive)
[2020-08-23] MEDS: ENOXAPARIN 30 MG/0.3 ML SYRINGE SUBCUT SCH (22:44)
[2020-08-24] MEDS: ALBUTEROL/IPRATROPIUM 3 ML NEB RESP TX SCH ×5 (01:22→19:31)
[2020-08-24 06:36] LABS: Basophils % 0.1 % (0.0-0.8); Eosinophils # 0.2 10*3/uL (0.0-0.87); Eosinophils % 2.2 % (0.00-10.9); Hematocrit 26.9 VOL% (35.7-47.0); Hemoglobin 8.7 GM/DL (12.0-16.0); Immature Granulocytes % 0.4 %; Immature Granulocytes Absolute 0.03 #; Lymphocytes # 0.5 10*3/uL (1.4-4.0); Lymphocytes % 7.7 % (21.3-54.2); Mean Corpuscular HGB Conc 32.3 GM/DL (32-36); Mean Corpuscular Volume 83.5 FL (87-102); Mean Platelet Volume 12.7 FL (9.6-12.0); Monocytes % 8.6 % (1.7-12.7); Platelet Count 124 T/CUMM (130-400); Red Blood Count 3.22 MC/CUMM (3.8-5.5); Red Cell Distribution Width 15.6 % (9.3-17.3); White Blood Count 6.7 T/CUMM (4-12)
[2020-08-24 07:02] LABS: Calcium 8.6 MG/DL (8.5-10.1); Osmolality,Calculated 319.8 MOS/KG (273-304)
[2020-08-24] MEDS: DOCUSATE SODIUM 100 MG CAPSULE PO SCH ×2 (08:37→21:00)
[2020-08-24] MEDS: hydrOXYzine HCL 25 MG TABLET PO SCH ×3 (08:37→21:01)
[2020-08-24] MEDS: NYSTATIN 500,000 UNIT/5 ML UDCUP SWISH/SWAL SCH ×4 (08:37→21:00)
[2020-08-24] MEDS: SERTRALINE 50 MG TABLET PO SCH (08:37)
[2020-08-24] MEDS: FERROUS SULFATE 325 MG TABLET PO SCH ×2 (08:37→21:00)
[2020-08-24] MEDS: PANTOPRAZOLE 40 MG TABLET PO SCH (08:37)
[2020-08-24] MEDS: PROPRANOLOL 40 MG TABLET PO SCH ×2 (08:37→21:01)
[2020-08-24] MEDS: NYSTATIN OINT 15 GM TUBE TOP SCH ×2 (08:38→21:00)
[2020-08-24] MEDS: TRIAMCINOLONE 0.1% CREAM 15 GM TUBE TOP SCH ×2 (08:38→21:09)
[2020-08-24] MEDS: [UNRECOGNIZED DRUG - OTHER] PO SCH ×2 (08:38→20:59)
[2020-08-24] MEDS: SODIUM BICARB INJ 50 MEQ in SODIUM CHLORIDE 0.45% 1,000 ML IV SCH (08:38)
[2020-08-24] MEDS: cefTRIAXone 1,000 MG in SODIUM CHLORIDE 0.9% 100 ML IV SCH (15:39)
[2020-08-24] MEDS: ONDANSETRON 4 MG/2 ML VIAL IV PRN (19:40)
[2020-08-24] MEDS: ENOXAPARIN 30 MG/0.3 ML SYRINGE SUBCUT SCH (21:00)
[2020-08-25] MEDS: ONDANSETRON 4 MG/2 ML VIAL IV PRN ×2 (04:57→18:24)
[2020-08-25] MEDS: ALBUTEROL/IPRATROPIUM 3 ML NEB RESP TX SCH ×4 (05:10→19:48)
[2020-08-25 05:52] LABS: Eosinophils # 0.2 10*3/uL (0.0-0.87); Eosinophils % 3.2 % (0.00-10.9); Hematocrit 26.6 VOL% (35.7-47.0); Hemoglobin 8.6 GM/DL (12.0-16.0); Immature Granulocytes % 0.9 %; Immature Granulocytes Absolute 0.05 #; Lymphocytes # 0.6 10*3/uL (1.4-4.0); Mean Corpuscular HGB Conc 32.3 GM/DL (32-36); Mean Corpuscular Volume 84.2 FL (87-102); Monocytes % 9.4 % (1.7-12.7); Neutrophils % 75.5 % (38.7-73.9); Platelet Count 119 T/CUMM (130-400); Red Blood Count 3.16 MC/CUMM (3.8-5.5); Red Cell Distribution Width 15.9 % (9.3-17.3); White Blood Count 5.6 T/CUMM (4-12)
[2020-08-25 06:13] LABS: Albumin 3.7 G/DL (3.4-5.0); Bilirubin,Total 1.1 MG/DL (0.2-1.0); Calcium 8.6 MG/DL (8.5-10.1); Osmolality,Calculated 319.8 MOS/KG (273-304); Potassium 4.8 MMOL/L (3.5-5.1); Total Protein 6.5 G/DL (6.4-8.2)
[2020-08-25] MEDS: PANTOPRAZOLE 40 MG TABLET PO SCH (09:48)
[2020-08-25] MEDS: FERROUS SULFATE 325 MG TABLET PO SCH ×2 (09:48→21:02)
[2020-08-25] MEDS: DOCUSATE SODIUM 100 MG CAPSULE PO SCH ×2 (09:48→21:02)
[2020-08-25] MEDS: SERTRALINE 50 MG TABLET PO SCH (09:49)
[2020-08-25] MEDS: hydrOXYzine HCL 25 MG TABLET PO SCH ×3 (09:49→21:02)
[2020-08-25] MEDS: NYSTATIN 500,000 UNIT/5 ML UDCUP SWISH/SWAL SCH ×4 (09:49→21:04)
[2020-08-25] MEDS: PROPRANOLOL 40 MG TABLET PO SCH ×2 (09:49→21:02)
[2020-08-25] MEDS: NYSTATIN OINT 15 GM TUBE TOP SCH ×2 (09:50→21:05)
[2020-08-25] MEDS: [UNRECOGNIZED DRUG - OTHER] PO SCH ×2 (11:18→21:49)
[2020-08-25] MEDS: TRIAMCINOLONE 0.1% CREAM 15 GM TUBE TOP SCH ×2 (11:18→21:03)
[2020-08-25] MEDS: MENTHOL/ZINC OXIDE OINT 71 GM JAR TOP SCH ×2 (15:01→21:02)
[2020-08-25] MEDS ORDERED: HEPARIN 10,000 UNIT/10 ML VIAL IV SCH (15:15)
[2020-08-25] MEDS: cefTRIAXone 1,000 MG in SODIUM CHLORIDE 0.9% 100 ML IV SCH (21:03)
[2020-08-25] MEDS: ENOXAPARIN 30 MG/0.3 ML SYRINGE SUBCUT SCH (21:04)
[2020-08-26] MEDS: ONDANSETRON 4 MG/2 ML VIAL IV PRN (00:08)
[2020-08-26] MEDS: ACETAMINOPHEN 325 MG TABLET PO PRN (00:09)
[2020-08-26] MEDS: ALBUTEROL/IPRATROPIUM 3 ML NEB RESP TX SCH ×4 (00:41→19:15)
[2020-08-26] MEDS ORDERED: PROMETHAZINE 25 MG/1 ML VIAL IM ONE (02:03)
[2020-08-26 05:47] LABS: Basophils % 0.2 % (0.0-0.8); Eosinophils # 0.3 10*3/uL (0.0-0.87); Eosinophils % 4.5 % (0.00-10.9); Hematocrit 26.8 VOL% (35.7-47.0); Hemoglobin 8.8 GM/DL (12.0-16.0); Immature Granulocytes % 0.7 %; Immature Granulocytes Absolute 0.04 #; Lymphocytes # 0.6 10*3/uL (1.4-4.0); Lymphocytes % 10.1 % (21.3-54.2); Mean Corpuscular HGB Conc 32.8 GM/DL (32-36); Mean Corpuscular Volume 83.8 FL (87-102); Monocytes % 8.4 % (1.7-12.7); Neutrophils % 76.1 % (38.7-73.9); Platelet Count 105 T/CUMM (130-400); Red Cell Distribution Width 16.2 % (9.3-17.3); White Blood Count 5.7 T/CUMM (4-12)
[2020-08-26 06:08] LABS: Calcium 8.8 MG/DL (8.5-10.1); Osmolality,Calculated 310.4 MOS/KG (273-304); Potassium 4.5 MMOL/L (3.5-5.1)
[2020-08-26] MEDS: FERROUS SULFATE 325 MG TABLET PO SCH ×2 (08:32→20:43)
[2020-08-26] MEDS: DOCUSATE SODIUM 100 MG CAPSULE PO SCH ×2 (08:32→20:44)
[2020-08-26] MEDS: NYSTATIN 500,000 UNIT/5 ML UDCUP SWISH/SWAL SCH ×4 (08:32→20:50)
[2020-08-26] MEDS: PROPRANOLOL 40 MG TABLET PO SCH ×2 (08:32→20:44)
[2020-08-26] MEDS: hydrOXYzine HCL 25 MG TABLET PO SCH ×3 (08:32→20:43)
[2020-08-26] MEDS: [UNRECOGNIZED DRUG - OTHER] PO SCH ×2 (08:32→20:53)
[2020-08-26] MEDS: SERTRALINE 50 MG TABLET PO SCH (08:33)
[2020-08-26] MEDS: PANTOPRAZOLE 40 MG TABLET PO SCH (08:33)
[2020-08-26] MEDS: MENTHOL/ZINC OXIDE OINT 71 GM JAR TOP SCH ×2 (09:38→20:44)
[2020-08-26] MEDS: NYSTATIN OINT 15 GM TUBE TOP SCH ×2 (09:39→20:44)
[2020-08-26] MEDS: TRIAMCINOLONE 0.1% CREAM 15 GM TUBE TOP SCH ×2 (09:39→20:44)
[2020-08-26] MEDS ORDERED: LORATADINE 10 MG TABLET PO PRN (17:59)
[2020-08-26] MEDS: ENOXAPARIN 30 MG/0.3 ML SYRINGE SUBCUT SCH (20:43)
[2020-08-26] MEDS: TEMAZEPAM 15 MG CAPSULE PO PRN (20:43)
[2020-08-26] MEDS: cefTRIAXone 1,000 MG in SODIUM CHLORIDE 0.9% 100 ML IV SCH (20:44)
[2020-08-26] MEDS: FLUTICASONE 50 MCG NASAL SPRAY 16 GM BOTTLE BOTH NARES SCH (20:50)
[2020-08-27] MEDS: ALBUTEROL/IPRATROPIUM 3 ML NEB RESP TX SCH ×4 (01:18→19:51)
[2020-08-27] MEDS: ONDANSETRON 4 MG/2 ML VIAL IV PRN ×2 (05:51→21:54)
[2020-08-27 07:02] LABS: Calcium 8.8 MG/DL (8.5-10.1); Osmolality,Calculated 299.1 MOS/KG (273-304); Potassium 3.9 MMOL/L (3.5-5.1)
[2020-08-27] MEDS: [UNRECOGNIZED DRUG - OTHER] PO SCH ×2 (12:30→23:26)
[2020-08-27] MEDS: PANTOPRAZOLE 40 MG TABLET PO SCH (15:23)
[2020-08-27] MEDS: SERTRALINE 50 MG TABLET PO SCH (15:23)
[2020-08-27] MEDS: NYSTATIN 500,000 UNIT/5 ML UDCUP SWISH/SWAL SCH ×3 (15:23→22:09)
[2020-08-27] MEDS: hydrOXYzine HCL 25 MG TABLET PO SCH ×3 (15:23→22:10)
[2020-08-27] MEDS: DOCUSATE SODIUM 100 MG CAPSULE PO SCH ×2 (16:31→22:10)
[2020-08-27] MEDS: PROPRANOLOL 40 MG TABLET PO SCH ×2 (16:32→22:10)
[2020-08-27] MEDS: TRIAMCINOLONE 0.1% CREAM 15 GM TUBE TOP SCH ×2 (16:32→23:27)
[2020-08-27] MEDS: FERROUS SULFATE 325 MG TABLET PO SCH ×2 (16:32→22:10)
[2020-08-27] MEDS: FLUTICASONE 50 MCG NASAL SPRAY 16 GM BOTTLE BOTH NARES SCH ×2 (16:32→22:10)
[2020-08-27] MEDS: NYSTATIN OINT 15 GM TUBE TOP SCH ×2 (16:32→22:10)
[2020-08-27] MEDS ORDERED: ACETAMINOPHEN 325 MG TABLET PO PRN (17:31)
[2020-08-27] MEDS: ENOXAPARIN 30 MG/0.3 ML SYRINGE SUBCUT SCH (22:09)
[2020-08-27] MEDS: cefTRIAXone 1,000 MG in SODIUM CHLORIDE 0.9% 100 ML IV SCH (22:09)
[2020-08-27] MEDS: MENTHOL/ZINC OXIDE OINT 71 GM JAR TOP SCH ×2 (23:27→23:28)
[2020-08-28] MEDS: ALBUTEROL/IPRATROPIUM 3 ML NEB RESP TX SCH ×4 (03:26→19:28)
[2020-08-28 06:38] LABS: Calcium 8.5 MG/DL (8.5-10.1); Osmolality,Calculated 291.3 MOS/KG (273-304); Potassium 3.7 MMOL/L (3.5-5.1)
[2020-08-28] MEDS: methylPREDNISolone SOD SUC 40 MG/1 ML VIAL IV SCH ×2 (07:40→18:13)
[2020-08-28] MEDS: PROPRANOLOL 40 MG TABLET PO SCH ×2 (08:33→21:30)
[2020-08-28] MEDS: SERTRALINE 50 MG TABLET PO SCH (08:33)
[2020-08-28] MEDS: FERROUS SULFATE 325 MG TABLET PO SCH ×2 (08:33→21:30)
[2020-08-28] MEDS: DOCUSATE SODIUM 100 MG CAPSULE PO SCH ×2 (08:34→21:30)
[2020-08-28] MEDS: PANTOPRAZOLE 40 MG TABLET PO SCH (08:34)
[2020-08-28] MEDS: hydrOXYzine HCL 25 MG TABLET PO SCH ×3 (08:34→21:30)
[2020-08-28] MEDS: NYSTATIN 500,000 UNIT/5 ML UDCUP SWISH/SWAL SCH ×4 (08:34→21:30)
[2020-08-28] MEDS: MENTHOL/ZINC OXIDE OINT 71 GM JAR TOP SCH ×2 (09:45→23:49)
[2020-08-28] MEDS: [UNRECOGNIZED DRUG - OTHER] PO SCH ×2 (09:45→23:48)
[2020-08-28] MEDS: FLUTICASONE 50 MCG NASAL SPRAY 16 GM BOTTLE BOTH NARES SCH ×2 (09:46→23:49)
[2020-08-28] MEDS: TRIAMCINOLONE 0.1% CREAM 15 GM TUBE TOP SCH ×2 (09:46→23:50)
[2020-08-28] MEDS: NYSTATIN OINT 15 GM TUBE TOP SCH ×2 (09:46→23:50)
[2020-08-28] MEDS: TEMAZEPAM 15 MG CAPSULE PO PRN (21:28)
[2020-08-28] MEDS: ONDANSETRON 4 MG/2 ML VIAL IV PRN (21:29)
[2020-08-28] MEDS: cefTRIAXone 1,000 MG in SODIUM CHLORIDE 0.9% 100 ML IV SCH (21:29)
[2020-08-28] MEDS: ENOXAPARIN 30 MG/0.3 ML SYRINGE SUBCUT SCH (21:31)
[2020-08-28] MEDS: ZINC OXIDE PASTE 113 GM TUBE TOP SCH (23:49)
[2020-08-29] MEDS: ALBUTEROL/IPRATROPIUM 3 ML NEB RESP TX SCH ×4 (00:58→19:43)
[2020-08-29] MEDS: methylPREDNISolone SOD SUC 40 MG/1 ML VIAL IV SCH ×2 (06:04→21:34)
[2020-08-29 06:48] LABS: Albumin 3.6 G/DL (3.4-5.0); Bilirubin,Total 0.9 MG/DL (0.2-1.0); Calcium 9.1 MG/DL (8.5-10.1); Osmolality,Calculated 288.8 MOS/KG (273-304); Total Protein 6.6 G/DL (6.4-8.2)
[2020-08-29] MEDS: NYSTATIN 500,000 UNIT/5 ML UDCUP SWISH/SWAL SCH ×4 (08:27→21:33)
[2020-08-29] MEDS: hydrOXYzine HCL 25 MG TABLET PO SCH ×3 (08:28→21:34)
[2020-08-29] MEDS: FERROUS SULFATE 325 MG TABLET PO SCH ×2 (08:28→21:34)
[2020-08-29] MEDS: [UNRECOGNIZED DRUG - OTHER] PO SCH ×2 (08:28→21:35)
[2020-08-29] MEDS: DOCUSATE SODIUM 100 MG CAPSULE PO SCH ×2 (08:28→21:34)
[2020-08-29] MEDS: MENTHOL/ZINC OXIDE OINT 71 GM JAR TOP SCH ×2 (08:28→21:44)
[2020-08-29] MEDS: SERTRALINE 50 MG TABLET PO SCH (08:28)
[2020-08-29] MEDS: PANTOPRAZOLE 40 MG TABLET PO SCH (08:28)
[2020-08-29] MEDS: ZINC OXIDE PASTE 113 GM TUBE TOP SCH ×2 (08:28→21:44)
[2020-08-29] MEDS: PROPRANOLOL 40 MG TABLET PO SCH ×2 (08:28→21:34)
[2020-08-29] MEDS: TRIAMCINOLONE 0.1% CREAM 15 GM TUBE TOP SCH ×2 (08:29→21:43)
[2020-08-29] MEDS: NYSTATIN OINT 15 GM TUBE TOP SCH ×2 (08:29→21:45)
[2020-08-29] MEDS: FLUTICASONE 50 MCG NASAL SPRAY 16 GM BOTTLE BOTH NARES SCH ×2 (08:29→21:36)
[2020-08-29] MEDS: ENOXAPARIN 30 MG/0.3 ML SYRINGE SUBCUT SCH (21:33)
[2020-08-29] MEDS: cefTRIAXone 1,000 MG in SODIUM CHLORIDE 0.9% 100 ML IV SCH (21:35)
[2020-08-30] MEDS: ALBUTEROL/IPRATROPIUM 3 ML NEB RESP TX SCH ×4 (00:09→19:37)
[2020-08-30 06:11] LABS: Calcium 8.8 MG/DL (8.5-10.1); Osmolality,Calculated 289.7 MOS/KG (273-304); Potassium 4.4 MMOL/L (3.5-5.1)
[2020-08-30 08:19] LABS: Basophils % 0.3 % (0.0-0.8); Eosinophils # 0.1 10*3/uL (0.0-0.87); Eosinophils % 0.9 % (0.00-10.9); Hematocrit 27.5 VOL% (35.7-47.0); Hemoglobin 8.5 GM/DL (12.0-16.0); Immature Granulocytes % 0.6 %; Immature Granulocytes Absolute 0.04 #; Lymphocytes # 0.9 10*3/uL (1.4-4.0); Lymphocytes % 12.3 % (21.3-54.2); Mean Corpuscular HGB Conc 30.9 GM/DL (32-36); Mean Corpuscular Volume 88.7 FL (87-102); Mean Platelet Volume 12.6 FL (9.6-12.0); Monocytes % 4.8 % (1.7-12.7); Neutrophils % 81.1 % (38.7-73.9); Red Cell Distribution Width 16.9 % (9.3-17.3); White Blood Count 6.9 T/CUMM (4-12)
[2020-08-30 08:24] LABS: Platelet Count 64 T/CUMM (130-400)
[2020-08-30 08:46] LABS: Hypochromasia 1+; Microcytosis 1+
[2020-08-30 08:47] LABS: Platelet Estimate Decreased
[2020-08-30] MEDS: PROPRANOLOL 40 MG TABLET PO SCH ×2 (09:17→20:24)
[2020-08-30] MEDS: hydrOXYzine HCL 25 MG TABLET PO SCH ×3 (09:18→20:25)
[2020-08-30] MEDS: SERTRALINE 50 MG TABLET PO SCH (09:18)
[2020-08-30] MEDS: NYSTATIN 500,000 UNIT/5 ML UDCUP SWISH/SWAL SCH ×4 (09:18→20:27)
[2020-08-30] MEDS: DOCUSATE SODIUM 100 MG CAPSULE PO SCH ×2 (09:18→20:24)
[2020-08-30] MEDS: FERROUS SULFATE 325 MG TABLET PO SCH ×2 (09:18→20:25)
[2020-08-30] MEDS: PANTOPRAZOLE 40 MG TABLET PO SCH (09:18)
[2020-08-30] MEDS: MENTHOL/ZINC OXIDE OINT 71 GM JAR TOP SCH ×2 (09:19→20:28)
[2020-08-30] MEDS: methylPREDNISolone SOD SUC 40 MG/1 ML VIAL IV SCH ×2 (09:19→20:25)
[2020-08-30] MEDS: ZINC OXIDE PASTE 113 GM TUBE TOP SCH ×2 (09:20→20:28)
[2020-08-30] MEDS: FLUTICASONE 50 MCG NASAL SPRAY 16 GM BOTTLE BOTH NARES SCH ×2 (09:21→20:28)
[2020-08-30] MEDS: TRIAMCINOLONE 0.1% CREAM 15 GM TUBE TOP SCH ×2 (09:21→20:24)
[2020-08-30] MEDS: [UNRECOGNIZED DRUG - OTHER] PO SCH ×2 (09:21→20:27)
[2020-08-30] MEDS: NYSTATIN OINT 15 GM TUBE TOP SCH ×2 (09:22→20:29)
[2020-08-30] MEDS: TEMAZEPAM 15 MG CAPSULE PO PRN (20:24)
[2020-08-30] MEDS: SIMETHICONE CHEW 80 MG TABLET PO PRN (20:24)
[2020-08-30] MEDS: ENOXAPARIN 30 MG/0.3 ML SYRINGE SUBCUT SCH (20:24)
[2020-08-30] MEDS: cefTRIAXone 1,000 MG in SODIUM CHLORIDE 0.9% 100 ML IV SCH (20:25)
[2020-08-31] MEDS: ALBUTEROL/IPRATROPIUM 3 ML NEB RESP TX SCH ×5 (00:28→19:14)
[2020-08-31 05:28] LABS: Basophils % 0.2 % (0.0-0.8); Eosinophils % 0.2 % (0.00-10.9); Hematocrit 26.6 VOL% (35.7-47.0); Immature Granulocytes % 0.6 %; Immature Granulocytes Absolute 0.04 #; Lymphocytes # 0.6 10*3/uL (1.4-4.0); Lymphocytes % 9.5 % (21.3-54.2); Mean Corpuscular HGB Conc 30.1 GM/DL (32-36); Mean Corpuscular Volume 89.9 FL (87-102); Mean Platelet Volume 12.7 FL (9.6-12.0); Monocytes % 3.6 % (1.7-12.7); Neutrophils % 85.9 % (38.7-73.9); Platelet Count 57 T/CUMM (130-400); Red Blood Count 2.96 MC/CUMM (3.8-5.5); Red Cell Distribution Width 17.1 % (9.3-17.3); White Blood Count 6.3 T/CUMM (4-12)
[2020-08-31 06:08] LABS: Albumin 3.5 G/DL (3.4-5.0); Bilirubin,Total 0.8 MG/DL (0.2-1.0); Osmolality,Calculated 291.8 MOS/KG (273-304); Potassium 4.1 MMOL/L (3.5-5.1); Total Protein 6.4 G/DL (6.4-8.2)
[2020-08-31 06:19] LABS: Hypochromasia 1+; Microcytosis 1+
[2020-08-31 06:20] LABS: Platelet Estimate Decreased
[2020-08-31] MEDS: FERROUS SULFATE 325 MG TABLET PO SCH ×2 (09:22→21:42)
[2020-08-31] MEDS: PANTOPRAZOLE 40 MG TABLET PO SCH (09:22)
[2020-08-31] MEDS: hydrOXYzine HCL 25 MG TABLET PO SCH ×3 (09:22→21:42)
[2020-08-31] MEDS: DOCUSATE SODIUM 100 MG CAPSULE PO SCH ×2 (09:22→21:42)
[2020-08-31] MEDS: PROPRANOLOL 40 MG TABLET PO SCH ×2 (09:22→21:42)
[2020-08-31] MEDS: SERTRALINE 50 MG TABLET PO SCH (09:22)
[2020-08-31] MEDS: FLUTICASONE 50 MCG NASAL SPRAY 16 GM BOTTLE BOTH NARES SCH ×2 (09:22→20:07)
[2020-08-31] MEDS: MENTHOL/ZINC OXIDE OINT 71 GM JAR TOP SCH ×2 (09:23→21:45)
[2020-08-31] MEDS: methylPREDNISolone SOD SUC 40 MG/1 ML VIAL IV SCH ×2 (09:23→21:43)
[2020-08-31] MEDS: NYSTATIN 500,000 UNIT/5 ML UDCUP SWISH/SWAL SCH ×4 (09:23→20:07)
[2020-08-31] MEDS: ZINC OXIDE PASTE 113 GM TUBE TOP SCH ×2 (09:24→21:45)
[2020-08-31] MEDS: NYSTATIN OINT 15 GM TUBE TOP SCH ×2 (09:24→21:45)
[2020-08-31] MEDS: TRIAMCINOLONE 0.1% CREAM 15 GM TUBE TOP SCH ×2 (09:24→21:42)
[2020-08-31] MEDS: [UNRECOGNIZED DRUG - OTHER] PO SCH ×2 (13:14→20:06)
[2020-08-31] MEDS: SIMETHICONE CHEW 80 MG TABLET PO PRN (18:05)
[2020-08-31] MEDS: ENOXAPARIN 30 MG/0.3 ML SYRINGE SUBCUT SCH (21:42)
[2020-08-31] MEDS: TEMAZEPAM 15 MG CAPSULE PO PRN (21:42)
[2020-08-31] MEDS: cefTRIAXone 1,000 MG in SODIUM CHLORIDE 0.9% 100 ML IV SCH (21:43)
[2020-09-01] MEDS: ALBUTEROL/IPRATROPIUM 3 ML NEB RESP TX SCH ×4 (01:21→19:17)
[2020-09-01] MEDS: ONDANSETRON 4 MG/2 ML VIAL IV PRN (03:39)
[2020-09-01] MEDS: TRIAMCINOLONE 0.1% CREAM 15 GM TUBE TOP SCH ×2 (08:36→22:14)
[2020-09-01] MEDS: NYSTATIN 500,000 UNIT/5 ML UDCUP SWISH/SWAL SCH ×4 (08:37→22:14)
[2020-09-01] MEDS: DOCUSATE SODIUM 100 MG CAPSULE PO SCH ×2 (08:37→21:56)
[2020-09-01] MEDS: SERTRALINE 50 MG TABLET PO SCH (08:37)
[2020-09-01] MEDS: PANTOPRAZOLE 40 MG TABLET PO SCH (08:37)
[2020-09-01] MEDS: FERROUS SULFATE 325 MG TABLET PO SCH ×2 (08:37→21:56)
[2020-09-01] MEDS: PROPRANOLOL 40 MG TABLET PO SCH ×2 (08:37→21:56)
[2020-09-01] MEDS: FLUTICASONE 50 MCG NASAL SPRAY 16 GM BOTTLE BOTH NARES SCH ×2 (08:37→22:14)
[2020-09-01] MEDS: hydrOXYzine HCL 25 MG TABLET PO SCH ×3 (08:37→21:56)
[2020-09-01] MEDS: methylPREDNISolone SOD SUC 40 MG/1 ML VIAL IV SCH ×2 (08:38→21:56)
[2020-09-01] MEDS: ZINC OXIDE PASTE 113 GM TUBE TOP SCH ×2 (08:38→22:13)
[2020-09-01] MEDS: MENTHOL/ZINC OXIDE OINT 71 GM JAR TOP SCH ×2 (08:38→22:13)
[2020-09-01] MEDS: NYSTATIN OINT 15 GM TUBE TOP SCH ×2 (08:39→22:14)
[2020-09-01] MEDS: [UNRECOGNIZED DRUG - OTHER] PO SCH ×2 (08:46→21:57)
[2020-09-01] MEDS: FUROSEMIDE 20 MG TABLET PO SCH (16:06)
[2020-09-01] MEDS: ENOXAPARIN 30 MG/0.3 ML SYRINGE SUBCUT SCH (21:55)
[2020-09-01] MEDS: TEMAZEPAM 15 MG CAPSULE PO PRN (21:56)
[2020-09-01] MEDS: SIMETHICONE CHEW 80 MG TABLET PO PRN (21:56)
[2020-09-02] MEDS: ALBUTEROL/IPRATROPIUM 3 ML NEB RESP TX SCH ×4 (01:24→20:21)
[2020-09-02 06:31] LABS: Basophils % 0.2 % (0.0-0.8); Eosinophils % 0.4 % (0.00-10.9); Hematocrit 25.7 VOL% (35.7-47.0); Hemoglobin 7.8 GM/DL (12.0-16.0); Immature Granulocytes % 0.5 %; Immature Granulocytes Absolute 0.03 #; Lymphocytes # 0.5 10*3/uL (1.4-4.0); Mean Corpuscular HGB Conc 30.4 GM/DL (32-36); Mean Corpuscular Volume 89.5 FL (87-102); Mean Platelet Volume 13.1 FL (9.6-12.0); Monocytes % 4.4 % (1.7-12.7); Neutrophils % 85.5 % (38.7-73.9); Platelet Count 55 T/CUMM (130-400); Red Blood Count 2.87 MC/CUMM (3.8-5.5); Red Cell Distribution Width 16.9 % (9.3-17.3); White Blood Count 5.6 T/CUMM (4-12)
[2020-09-02 06:48] LABS: Hypochromasia 1+
[2020-09-02 06:49] LABS: Microcytosis 1+; Platelet Estimate Decreased
[2020-09-02 06:54] LABS: Albumin 3.4 G/DL (3.4-5.0); Bilirubin,Total 1.3 MG/DL (0.2-1.0); Osmolality,Calculated 297.1 MOS/KG (273-304); Potassium 4.6 MMOL/L (3.5-5.1); Total Protein 6.3 G/DL (6.4-8.2)
[2020-09-02] MEDS: FLUTICASONE 50 MCG NASAL SPRAY 16 GM BOTTLE BOTH NARES SCH (09:06)
[2020-09-02] MEDS: SERTRALINE 50 MG TABLET PO SCH (09:07)
[2020-09-02] MEDS: hydrOXYzine HCL 25 MG TABLET PO SCH ×2 (09:07→16:38)
[2020-09-02] MEDS: NYSTATIN 500,000 UNIT/5 ML UDCUP SWISH/SWAL SCH ×3 (09:07→16:39)
[2020-09-02] MEDS: DOCUSATE SODIUM 100 MG CAPSULE PO SCH (09:07)
[2020-09-02] MEDS: FUROSEMIDE 20 MG TABLET PO SCH ×2 (09:07→16:38)
[2020-09-02] MEDS: PANTOPRAZOLE 40 MG TABLET PO SCH (09:08)
[2020-09-02] MEDS: FERROUS SULFATE 325 MG TABLET PO SCH (09:08)
[2020-09-02] MEDS: PROPRANOLOL 40 MG TABLET PO SCH (09:08)
[2020-09-02] MEDS: MENTHOL/ZINC OXIDE OINT 71 GM JAR TOP SCH (09:08)
[2020-09-02] MEDS: ZINC OXIDE PASTE 113 GM TUBE TOP SCH (09:09)
[2020-09-02] MEDS: TRIAMCINOLONE 0.1% CREAM 15 GM TUBE TOP SCH (09:09)
[2020-09-02] MEDS: methylPREDNISolone SOD SUC 40 MG/1 ML VIAL IV SCH (09:10)
[2020-09-02] MEDS: NYSTATIN OINT 15 GM TUBE TOP SCH (09:10)
[2020-09-02] MEDS: [UNRECOGNIZED DRUG - OTHER] PO SCH (09:11)
[2020-09-02 15:38] VITALS: BP 138/47
[2020-09-02] MEDS: SIMETHICONE CHEW 80 MG TABLET PO PRN (16:41)
== END 2020-09-02 19:30 | disposition home or self-care (01) | DRG 683 ==
LOC: N.ED 11:08 → N.EDINP 14:52 → N.3E 16:20
PROVIDERS: ADMIT Internal Medicine; ATTEND Internal Medicine